=== PATIENT | male | born 1955 | race African-American/Black ===

== ENCOUNTER 2019-01-20 17:10 | Emergency (ER) | payer MEDICARE, MEDICAID ==
[~2019-01-20] VITALS: Ht 167.6 cm; Wt 87.0 kg
[2019-01-20] MEDS ORDERED: SODIUM CHLORIDE 0.9% 1,000 ML IV ONE (19:46)
[2019-01-20] MEDS ORDERED: PANTOPRAZOLE SODIUM 40 MG/VIAL IV ONE (20:00)
[2019-01-20 20:33] LABS: BASOPHILS % 0.5 % (0.0-2.0); HEMATOCRIT. 43.9 % (42.0-52.0); LYMPHOCYTES % 16.9 % (20.0-50.0); MEAN CORPUSCULAR HEMOGLOBIN 28.7 pg (28.0-32.0); MEAN CORPUSCULAR VOLUME 84.2 fL (80.0-94.0); MEAN PLATELET VOLUME 8.5 fl (7.4-10.4); MONOCYTES % 4.8 % (2.0-8.0); NEUTROPHILS % 75.8 % (40.0-76.0); PLATELET 222 x1000/uL (130-400); RED BLOOD CELL COUNT 5.21 mill/uL (4.7-6.1); RED CELL DISTRIBUTION WIDTH 13.8 % (11.6-14.6)
[2019-01-20 20:39] LABS: CHLORIDE 104 mEq/L (98-107)
[2019-01-20 20:40] LABS: PROTHROMBIN TIME 10.1 sec (9.6-11.0)
[2019-01-20 21:39] VITALS: BP 152/98
== END 2019-01-20 21:41 | disposition home or self-care (01) ==
LOC: ER 17:18
DX: R04.0 Epistaxis (principal); I10 Essential (primary) hypertension; Z86.73 Personal history of transient ischemic attack (TIA), and cerebral infarction without residual deficits
CPT/HCPCS: 30901; 36415; 80048; 83605; 85025; 85610; 87040; 96374; 99284; C9113; J7030